=== PATIENT | female | born 1970 | race Caucasian/White ===

== ENCOUNTER 2017-05-18 01:42 | Emergency (ER) | payer BC, OTHER ==
[~2017-05-18] VITALS: Ht 152.4 cm; Wt 80.0 kg
[2017-05-18 01:48] VITALS: BP 138/91; PULSE 95; RESP 18; TEMP 98.2; O2SAT 98
[2017-05-18] MEDS ORDERED: SODIUM CHLOR 0.9% 1000 ML INJ 1,000 ML IV SCH (03:14)
[2017-05-18] MEDS ORDERED: ONDANSETRON HCL 4 MG/2 ML VIAL IV PUSH ONE (03:15)
[2017-05-18] MEDS ORDERED: MORPHINE SULFATE 4 MG/ML INJ IV PUSH ONE (03:15)
[2017-05-18] MEDS ORDERED: KETOROLAC TROMETHAMINE 30 MG/ML (IVP) VIAL IVP ONE (03:30)
[2017-05-18] MEDS ORDERED: SODIUM CHLORIDE 0.9% FLUSH 10 ML FLUSH IV FLUSH PRN (03:30)
[2017-05-18] MEDS ORDERED: ONDANSETRON HCL 4 MG/2 ML VIAL ONE (04:05)
[2017-05-18] MEDS: MORPHINE SULFATE 8 MG/ML INJ ONE ×2 (05:04→05:05)
[2017-05-18 05:15] VITALS: BP 143/83; PULSE 87; RESP 18; O2SAT 100
[2017-05-18 05:20] LABS: AUTOMATED NEUTROPHIL # 4.8 TH/MM3 (1.8-7.7); BASOPHIL % 0.6 % (0.0-2.0); EOSINOPHIL # 0.2 TH/MM3 (0-0.4); EOSINOPHIL % 3.1 % (0.0-4.0); HEMATOCRIT 42.9 % (35.0-46.0); HEMOGLOBIN 15.1 GM/DL (11.6-15.3); LYMPHOCYTE # 1.9 TH/MM3 (1.0-4.8); MEAN CELL VOLUME 88.6 FL (80.0-100.0); MEAN CORPUSCULAR HEMOGLOBIN 31.2 PG (27.0-34.0); MEAN CORPUSCULAR HGB CONC 35.2 % (32.0-36.0); MEAN PLATELET VOLUME 9.1 FL (7.0-11.0); MONOCYTE # 0.6 TH/MM3 (0-0.9); NEUT % 63.3 % (16.0-70.0); PLATELET COUNT 213 TH/MM3 (150-450); RED BLOOD COUNT 4.85 MIL/MM3 (4.00-5.30); RED CELL DISTRIBUTION WIDTH 13.5 % (11.6-17.2); WHITE BLOOD COUNT 7.5 TH/MM3 (4.0-11.0)
[2017-05-18 05:25] LABS: INTERNATIONAL NORMALIZED RATIO 0.9 RATIO; PROTHROMBIN TIME - PATIENT 9.6 SEC (9.8-11.6)
[2017-05-18 05:31] LABS: BICARBONATE 23.9 MEQ/L (21.0-32.0); CALCIUM 9.1 MG/DL (8.5-10.1); CREATININE 0.77 MG/DL (0.50-1.00)
[2017-05-18] MEDS ORDERED: IOHEXOL 350 MG/ML 10 ML VIAL (for RAD DIAG) IVCONTRAST ONE (05:51)
--- NOTE | 2017-05-18 06:52 | PD ---
HPI Chief Complaint: Abdominal Pain Time Seen by Provider: 02:43 Travel History International Travel<30 days: No Contact w/Intl Traveler<30days: No Traveled to known affect area: No History of Present Illness HPI Patient is a 47-year-old female who comes in complaining of abdominal pain. She says she has had the pain for the past few days, and it seemed to be getting worse. She tried taking Nexium without relief. She says the pain is in her epigastric area as well as the right upper quadrant. She has had some nausea, but no vomiting. She fever chills. She says she is moving her bowels normally. She says she has never had pain like this before. She does say that she has issues with GERD. Severity is mild to moderate. PFSH Past Medical History Medical History: Denies Significant Hx Diminished Hearing: No Tetanus Vaccination: Unknown Influenza Vaccination: Yes ?: Not LMP: 04/16/2017 Past Surgical History Ear Surgery: Yes (b/l tubes in ears as a child) Other Surgery: Yes (ornapic surgery x2) Social History Alcohol Use: No Tobacco Use: Yes Substance Use: No Allergies-Medications (Allergen,Severity, Reaction): Coded Allergies: Sulfa (Sulfonamide Antibiotics) (Verified Allergy, Mild, Generalized Rash , 05/18/17) sulfamethoxazole (Verified Allergy, Mild, Rash, 05/18/17) trimethoprim (Verified Allergy, Mild, Rash, 05/18/17) penicillin G (Verified Adverse Reaction, Intermediate, 05/18/17) Yeast Infection codeine (Verified Adverse Reaction, Mild, Nausea, 05/18/17) Reported Meds & Prescriptions Reported Meds & Active Scripts Active No Active Prescriptions or Reported Medications Review of Systems Except as stated in HPI: all other systems reviewed are Neg General / Constitutional: No: Fever, Chills HENT: No: Headaches, Lightheadedness Cardiovascular: No: Chest Pain or Discomfort Respiratory: No: Shortness of Breath Gastrointestinal: Positive: Nausea, Abdominal Pain, No: Vomiting Musculoskeletal: No: Myalgias, Edema Skin: No Rash, No Change in Pigmentation Neurologic: No: Weakness, Dizziness Physical Exam Narrative GENERAL: An alert, in no acute distress. SKIN: Focused skin assessment warm/dry. No wounds or signs of infection. HEAD: Atraumatic. Normocephalic. EYES: Pupils equal and round. No scleral icterus. ENT: No nasal bleeding or discharge. Mucous membranes pink and moist. NECK: Trachea midline. No JVD. CARDIOVASCULAR: Regular rate and rhythm. No murmur appreciated. RESPIRATORY: No accessory muscle use. Clear to auscultation. Breath sounds equal bilaterally. GASTROINTESTINAL: Abdomen soft, nondistended. Tender to palpation of the right upper quadrant as well as epigastric area. No rebound or guarding. MUSCULOSKELETAL: No obvious deformities. No clubbing. No cyanosis. No edema. NEUROLOGICAL: Awake and alert. No obvious cranial nerve deficits. Motor grossly within normal limits. Normal speech. PSYCHIATRIC: Appropriate mood and affect; insight and judgment normal. Data Data Last Documented VS Vital Signs Date Time Temp Pulse Resp B/P (MAP) Pulse Ox O2 Delivery O2 Flow Rate FiO2 05/18/17 06:05 16 05/18/17 05:15 87 143/83 (103) 100 Room Air 05/18/17 01:48 98.2 Orders Orders Morphine Inj (Morphine Inj) (05/18/17 03:15) Ondansetron Inj (Zofran Inj) (05/18/17 03:15) Sodium Chlor 0.9% 1000 Ml Inj (Ns 1000 M (05/18/17 03:14) Basic Metabolic Panel (Bmp) (05/18/17 03:17) Complete Blood Count With Diff (05/18/17 03:17) Lipase (05/18/17 03:17) Prothrombin Time / Inr (Pt) (05/18/17 03:17) Act Partial Throm Time (Ptt) (05/18/17 03:17) Ct Abd/Pel W Iv Contrast(Rout) (05/18/17 03:17) Iv Access Insert/Monitor (05/18/17 03:17) Ecg Monitoring (05/18/17 03:17) Oximetry (05/18/17 03:17) Sodium Chloride 0.9% Flush (Ns Flush) (05/18/17 03:30) Ketorolac Inj (Toradol Inj) (05/18/17 03:30) Ondansetron Inj (Zofran Inj) (05/18/17 04:05) Morphine Inj (Morphine Inj) (05/18/17 04:05) Urinalysis - C+S If Indicated (05/18/17 04:14) Iohexol 350 Inj (Omnipaque 350 Inj) (05/18/17 05:51) Labs Laboratory Tests Test 05/18/17 04:55 White Blood Count 7.5 TH/MM3 Red Blood Count 4.85 MIL/MM3 Hemoglobin 15.1 GM/DL Hematocrit 42.9 % Mean Corpuscular Volume 88.6 FL Mean Corpuscular Hemoglobin 31.2 PG Mean Corpuscular Hemoglobin Concent 35.2 % Red Cell Distribution Width 13.5 % Platelet Count 213 TH/MM3 Mean Platelet Volume 9.1 FL Neutrophils (%) (Auto) 63.3 % Lymphocytes (%) (Auto) 25.0 % Monocytes (%) (Auto) 8.0 % Eosinophils (%) (Auto) 3.1 % Basophils (%) (Auto) 0.6 % Neutrophils # (Auto) 4.8 TH/MM3 Lymphocytes # (Auto) 1.9 TH/MM3 Monocytes # (Auto) 0.6 TH/MM3 Eosinophils # (Auto) 0.2 TH/MM3 Basophils # (Auto) 0.0 TH/MM3 CBC Comment DIFF FINAL Differential Comment Prothrombin Time 9.6 SEC Prothromb Time International Ratio 0.9 RATIO Activated Partial Thromboplast Time 30.3 SEC Blood Urea Nitrogen 10 MG/DL Creatinine 0.77 MG/DL Random Glucose 93 MG/DL Calcium Level 9.1 MG/DL Sodium Level 137 MEQ/L Potassium Level 3.3 MEQ/L Chloride Level 103 MEQ/L Carbon Dioxide Level 23.9 MEQ/L Anion Gap 10 MEQ/L Estimat Glomerular Filtration Rate 81 ML/MIN Lipase 225 U/L MDM Medical Decision Making Medical Screen Exam Complete: Yes Emergency Medical Condition: Yes Medical Record Reviewed: Yes Differential Diagnosis Cholelithiasis versus cholecystitis versus pancreatitis versus GERD Narrative Course Patient is a 47-year-old female who comes in complaining of abdominal pain. Exam shows epigastric as well as right upper quadrant tenderness. IV established, labs sent. Labs show no acute abnormalities. Patient given Toradol and Zofran with relief of her symptoms. Scripts No Active Prescriptions or Reported Meds Lisa Spence MD May 18, 2017 06:52
--- NOTE | 2017-05-18 07:06 | RADRPT ---
EXAM DATE/TIME: 05/18/2017 05:48 [facility] COMPARISON: No previous studies available for comparison. INDICATIONS : Diffuse abdominal pain and nausea. IV CONTRAST: 100 cc Omnipaque 350 (iohexol) IV ORAL CONTRAST: No oral contrast ingested. RADIATION DOSE: 7.44 CTDIvol (mGy) MEDICAL HISTORY : None SURGICAL HISTORY : None. ENCOUNTER: Initial ACUITY: 1 day PAIN SCALE: 5/10 LOCATION: Bilateral abdomen TECHNIQUE: Volumetric scanning of the abdomen and pelvis was performed. Using automated exposure control and ad justment of the mA and/or kV according to patient size, radiation dose was kept as low as reasonably achievable to obtain optimal diagnostic quality images. DICOM format image data is available electro nically for review and comparison. FINDINGS: LOWER LUNGS: The visualized lower lungs are clear. LIVER: Homogeneous density without lesion. There is no dilation of the biliary tree. No calcified gallston es. SPLEEN: Normal size without lesion. PANCREAS: Within normal limits. KIDNEYS: Normal in size and shape. There is no mass, stone or hydronephrosis. ADRENAL GLANDS: Within normal limits. VASCULAR: There is no aortic aneurysm. BOWEL/MESENTERY: The stomach, small bowel, and colon demonstrate no acute abnormality. There is no free intraperitone al air or fluid. ABDOMINAL WALL: Within normal limits. RETROPERITONEUM: There is no lymphadenopathy. BLADDER: No wall thickening or mass. REPRODUCTIVE: 1.2 cm hypodense area in the right uterine fundus may represent a small fibroid. Small amount of free fluid in the deep right pelvis. INGUINAL: There is no lymphadenopathy or hernia. MUSCULOSKELETAL: Within normal limits for patient age. CONCLUSION: 1. Possible small 1.2 cm right uterine fundal fibroid. Minimal right pelvic fluid. Otherwise, no acute intraperitoneal or pelvic process to explain current clinical symptoms Jeremías Kan MD on May 18, 2017 at 7:02 Board Certified Radiologist. This report was verified electronically.
[2017-05-18] MEDS ORDERED: POTASSIUM CHLORIDE 20 MEQ CONTROLLED RELEASE TAB PO ONE (07:15)
[2017-05-18 07:47] VITALS: BP 168/99; PULSE 79; RESP 20; O2SAT 99
[2017-05-18 07:52] LABS: BACTERIA, URINE RARE /hpf; BLOOD, URINE NEG (NEG); GLUCOSE,URINE NEG (NEG); KETONE, URINE NEG (NEG); MUCUS URINE FEW /lpf (OCC); NITRITE,URINE NEG (NEG); SQUAMOUS EPITHELIAL CELL URINE 30 /hpf (0-5); URINE COLOR YELLOW (YELLW/STRAW); URINE LEUKOCYTE ESTERASE NEG (NEG)
[2017-05-18 07:55] LABS: BILIRUBIN, URINE NEG (NEG)
[2017-05-18] MEDS ORDERED: OMEP20TA93 PO (08:07)
[2017-05-18] MEDS ORDERED: ZOFR4TAB3 SL (08:07)
--- NOTE | 2017-05-18 08:07 | PD ---
Physical Exam Date Seen by Provider: May 18, 2017 Time Seen by Provider: 08:04 Narrative 47-year-old female came to the emergency room for abdominal pain. She was seen by the previous ER physician. There was blood work and CAT scan ordered. Blood work was suggestive of slight hypokalemia which I ordered a p.o. replacement for. Patient was given IV fluid and multiple pain medications by the previous ER physician. Please refer to her history and physical for further details. Signout was to follow-up on the UA. CT scan report came back as uterine fibroid and minimal free fluid in the pelvis. The UA report just came back and does not suggest UTI but specific gravity is high. I have ordered for another liter of IV fluid bolus after which patient will be discharged home. She will need to follow-up with [facility]. Data Data Last Documented VS Orders Orders Morphine Inj (Morphine Inj) (05/18/17 03:15) Ondansetron Inj (Zofran Inj) (05/18/17 03:15) Sodium Chlor 0.9% 1000 Ml Inj (Ns 1000 M (05/18/17 03:14) Basic Metabolic Panel (Bmp) (05/18/17 03:17) Complete Blood Count With Diff (05/18/17 03:17) Lipase (05/18/17 03:17) Prothrombin Time / Inr (Pt) (05/18/17 03:17) Act Partial Throm Time (Ptt) (05/18/17 03:17) Ct Abd/Pel W Iv Contrast(Rout) (05/18/17 03:17) Iv Access Insert/Monitor (05/18/17 03:17) Ecg Monitoring (05/18/17 03:17) Oximetry (05/18/17 03:17) Sodium Chloride 0.9% Flush (Ns Flush) (05/18/17 03:30) Ketorolac Inj (Toradol Inj) (05/18/17 03:30) Ondansetron Inj (Zofran Inj) (05/18/17 04:05) Morphine Inj (Morphine Inj) (05/18/17 04:05) Urinalysis - C+S If Indicated (05/18/17 04:14) Iohexol 350 Inj (Omnipaque 350 Inj) (05/18/17 05:51) Potassium Chloride (Kcl) (05/18/17 07:15) Sodium Chlor 0.9% 1000 Ml Inj (Ns 1000 M (05/18/17 08:15) Ed Discharge Order (05/18/17 08:57) Labs Laboratory Tests Test 05/18/17 04:55 05/18/17 07:18 White Blood Count 7.5 TH/MM3 Red Blood Count 4.85 MIL/MM3 Hemoglobin 15.1 GM/DL Hematocrit 42.9 % Mean Corpuscular Volume 88.6 FL Mean Corpuscular Hemoglobin 31.2 PG Mean Corpuscular Hemoglobin Concent 35.2 % Red Cell Distribution Width 13.5 % Platelet Count 213 TH/MM3 Mean Platelet Volume 9.1 FL Neutrophils (%) (Auto) 63.3 % Lymphocytes (%) (Auto) 25.0 % Monocytes (%) (Auto) 8.0 % Eosinophils (%) (Auto) 3.1 % Basophils (%) (Auto) 0.6 % Neutrophils # (Auto) 4.8 TH/MM3 Lymphocytes # (Auto) 1.9 TH/MM3 Monocytes # (Auto) 0.6 TH/MM3 Eosinophils # (Auto) 0.2 TH/MM3 Basophils # (Auto) 0.0 TH/MM3 CBC Comment DIFF FINAL Differential Comment Prothrombin Time 9.6 SEC Prothromb Time International Ratio 0.9 RATIO Activated Partial Thromboplast Time 30.3 SEC Blood Urea Nitrogen 10 MG/DL Creatinine 0.77 MG/DL Random Glucose 93 MG/DL Calcium Level 9.1 MG/DL Sodium Level 137 MEQ/L Potassium Level 3.3 MEQ/L Chloride Level 103 MEQ/L Carbon Dioxide Level 23.9 MEQ/L Anion Gap 10 MEQ/L Estimat Glomerular Filtration Rate 81 ML/MIN Lipase 225 U/L Urine Color YELLOW Urine Turbidity HAZY Urine pH 7.0 Urine Specific [place] GREATER THAN 1.050 Urine Protein 30 mg/dL Urine Glucose (UA) NEG mg/dL Urine Ketones NEG mg/dL Urine Occult Blood NEG Urine Nitrite NEG Urine Bilirubin NEG Urine Urobilinogen 2.0 MG/DL Urine Leukocyte Esterase NEG Urine RBC 1 /hpf Urine WBC LESS THAN 1 /hpf Urine Squamous Epithelial Cells 30 /hpf Urine Bacteria RARE /hpf Urine Mucus FEW /lpf Microscopic Urinalysis Comment CULT NOT INDICATED MDM Supervised Visit with MICAELA: No Diagnosis Primary Impression: Abdominal pain Qualified Codes: R10.13 - Epigastric pain Additional Impression: Dehydration Referrals: Primary Care Physician Additional Instruction: Drink lots of fluid. Take the medication as per the prescription direction. Return to the ER if condition worsens or any other new concerns. Make sure you drink lots of fluid to keep yourself hydrated. Do not drink alcohol or eat or drink any acidic food or beverage. Med/Other Pt SpecificInfo: Prescription(s) given Scripts Ondansetron Odt (Zofran Odt) 4 Mg Tab 4 MG SL Q6HR Y for Nausea/Vomiting, #10 TAB 0 Refills Prov: Butch Meza MD 05/18/17 Omeprazole (Omeprazole) 20 Mg Tab 20 MG PO DAILY, #30 TAB 0 Refills Prov: Butch Meza MD 05/18/17 Disposition: 01 DISCHARGE HOME Condition: Stable Butch Meza MD May 18, 2017 08:07
[2017-05-18] MEDS ORDERED: SODIUM CHLOR 0.9% 1000 ML INJ 1,000 ML IV ONE (08:15)
[2017-05-18 09:42] VITALS: BP 162/72
== END 2017-05-18 09:44 | disposition home or self-care (01) ==
LOC: NEPC 01:42
DX: R10.13 Epigastric pain (principal); R11.0 Nausea; E86.0 Dehydration; E87.6 Hypokalemia; R50.9 Fever, unspecified; K21.9 Gastro-esophageal reflux disease without esophagitis; Z72.0 Tobacco use; Z88.2 Allergy status to sulfonamides; Z88.0 Allergy status to penicillin
CPT/HCPCS: 74177; 80048; 81001; 83690; 85025; 85610; 85730; 96361; 96374; 99284; J1885; J2270; J2405; J7030; Q9967

== ENCOUNTER 2017-05-22 19:46 | Emergency (ER) | payer OTHER ==
[~2017-05-22 19:46] MED LIST: OMEP20TA93 PO; ZOFR4TAB3 SL
[2017-05-22 20:00] VITALS: BP 193/97; PULSE 83; RESP 22; TEMP 98.6; O2SAT 100
== END 2017-05-22 23:10 | disposition left against medical advice (07) ==
LOC: NED 19:46
DX: R10.9 Unspecified abdominal pain (principal); Z53.21 Procedure and treatment not carried out due to patient leaving prior to being seen by health care provider
CPT/HCPCS: 99281